=== PATIENT | female | born 1960 | race Caucasian/White ===

== ENCOUNTER 2023-03-30 10:28 | Emergency (ER) | payer OTHER, SELFPAY ==
[2023-03-30 10:31] VITALS: BP 137/88
--- NOTE | 2023-03-30 11:54 | ED.GENMED ---
History of Present Illness
General
Chief Complaint: Back Pain
Source: patient
Exam Limitations: none
Time Seen by Provider: 03/30/23 11:08
Nursing documentation reviewed up to this point in time: agreed with
Travel History
Have you had any contact with someone who has COVID-19?: No
Do you have any symptoms of coronavirus? Fever > 100 degrees, chills, cough, shortness of breath, sore throat, loss of taste or smell, muscle aches, or headache?: No
History of Present Illness
History of Present Illness:
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
3 to 4 days ago after helping her sister clean up the house. Patient says she is not really sure if she overdid it. She developed this pain and then felt the lump present. The skin over that lump looks normal according to the sister. She has not
had any fever or chills, radiation of pain down her leg, wrapping of pain around her abdomen. Patient says she also has chronic shoulder pain from a previous shoulder surgery. Her shoulder was also slightly sore. She is right-handed. She did not
try anything for pain. She says she prefers tramadol and does not prefer muscle relaxers. Patient denies any weakness in her legs, numbness in her legs, incontinence, fever or chills, ongoing IV drug abuse
Past History
Past History
ED Past Medical History: Psychiatric (Bipolar, depression, PTSD, schizophrenia)
ED Past Surgical History: Gynecological (tubal ligation) and Orthopedic
Social History
Tobacco: Smoker
Alcohol: None
Personal: Single
Living: with family
Review of Systems
Review of Systems
Allergies reviewed?: Yes
All Other Systems: Not applicable
Phy Exam
Physical Exam
Physical Exam:
GENERAL: Alert , in no apparent distress, comfortable at rest
HEAD: NCAT
CARDIAC: Regular rate and rhythm, no edema
LUNGS: Clear breath sounds bilaterally, no acute respiratory distress, no wheezes/rales/rhonchi
ABDOMEN: Soft, without focal tenderness, no r/g, no cvat, normal bowel sounds, nondistended
NEUROLOGICAL: Alert and oriented, no focal neuro deficits, CN intact, 5/5 strength, sensation intact, ambulating normaloy
SKIN: Warm and dry, no rash, no bruising, nor edness;
Back: No midline tenderness, pt has lordosis of lumbar spine that is prominent
she has tendneres sand a lump just lateral to the midline, deep to the tissue without any overlying skin chnages
pt has no sign of erythnea
this does not feel like a lipoma
feels tight and tender as a muscle spasm wound
neg straight leg raise
flexion causes pain past 30 degrees
PSYCH: Normal and appropriate interaction.
Course
Orders/Labs/Results
Orders:
Orders
03/30/23 11:48
Ketorolac [Toradol] 30 mg IM NOW STA
Lidocaine [Lidocaine 4% Patch] 1 patch TOPICAL NOW STA
Vital Signs
Initial and Last Documented VS:
Initial Vital Signs
Temp Pulse Resp BP Pulse Ox
98.5 F 92 18 137/88 96
03/30/23 10:31 03/30/23 10:03/30/23 10:03/30/23 10:31 03/30/23 10:31
Last Documented Vital Signs
Temp Pulse Resp BP Pulse Ox
98.5 F 92 18 137/88 96
03/30/23 10:31 03/30/23 10:31 03/30/23 10:31 03/30/23 10:31 03/30/23 10:31
MDM/Problems Addressed
Differential Diagnosis Includes:
lipoma, muscle spasm, mass
MDM/Problems Addressed:
62-year-old female with a history of degenerative disc disease, psychiatric illness presents for nontraumatic right-sided lower back pain with a lump just to the left lateral of her spine after doing some cleaning a few days ago. Patient says the
pain is worse with twisting and bending. She is not having any radicular symptoms, numbness tingling or weakness, chest pain or shortness of breath, skin changes. On exam the patient has palpable tightness in the right paraspinal region on the
upper lumbar area which seems to be a muscle spasm. Evaluated with ED attending who performed bedside ultrasound which did not show any obvious fluid-filled collection. We suspect that this is a muscle spasm. Patient does not like the way the
muscle relaxants make her feel so we will do topical lidocaine patch and pain medication. She has some intolerance to NSAIDs but can take Toradol. She was given a dose here before leaving. [place] that imaging was low yield given no history of
trauma and this feeling very consistent with muscle spasm lateral to the midline
*Critical Care Note
Total Time (30-74mins, 75-104mins- exclusive of procedures): Not Applicable
ED Attending Note
-
Portions of this chart may have been created with voice recognition software.� Occasional wrong word or��sound alike� substitutions may have occurred due to the inherent limitations of voice recognition software.
Discharge Plan
Departure
Patient Disposition: Home (Routine Discharge)
Date of Disposition: 03/30/23
Time of Disposition: 12:06
Patient with high blood pressure during this ER visit?: No
Condition: Fair
Covid-19: Not Applicable
Discharge Problem:
Back muscle spasm
Instructions: Muscle Spasms (DC)
Prescriptions:
New
lidocaine 5 % adhesive patch,medicated
1 patch topical DAILY PRN (Reason: BACK PAIN) Qty: 15 0RF
Rx Instructions:
LEAVE ON FOR 12 HOURS, REMOVE FOR 12 HOURS
No Action
gabapentin 300 mg Tablet
300 mg PO TID
pramipexole 0.5 mg Tablet
0.5 mg PO BID
trazodone 100 mg Tablet
100 mg PO HS
Vraylar 3 mg Capsule
3 mg PO HS
levofloxacin 250 mg tablet
250 mg PO DAILY Qty: 3 0RF
nitrofurantoin monohyd/m-cryst [Macrobid] 100 mg capsule
100 mg PO Q12H 5 Days Qty: 10 0RF
Referrals:
PRIVATE,PHYSICIAN [Family Provider] -
Activity Restrictions/Additional Instructions:
YOUR BACK PAIN SEEMS TO BE FROM A SPASM
TRY LIDOCAINE PATCH 12 HOURS ON 12 HOURS OFF FOR YOUR BACK PAIN
WHNE THE PATCH IS OFF, YOU CAN APPLY HEAT TO YOUR BACK
TAKE TYLENOL 3 TIMES A DAY FOR PAIN NEEDED
RETURN FOR WORSE PAIN, SKIN CHANGES, FEVER, WEAKNESS IN LEGS, TROUBL EBREATHING OR ANY CONCENRS.
Interventions
Interventions:
*Risk Screen - Suicide Last Done: 03/30/23 10:35
*General Assessment Last Done: 03/30/23 10:35
*Neglect/Abuse Screening Last Done: 03/30/23 10:35
*Nursing Disposition Last Done: 03/30/23 12:35
Discharge Date and Time
Discharge Date/Time: 03/30/23 12:35
[2023-03-30] MEDS: TORADOL 30 MG IM (12:11)
[2023-03-30] MEDS: LIDOCAINE 4% PATCH 1 PATCH TOPICAL (12:11)
== END 2023-03-30 12:35 | disposition home or self-care (01) ==
LOC: EMR 10:28
PROVIDERS: EMERGENCY PHYSICIAN Emergency Medicine
DX: M62.830 Muscle spasm of back (principal); M54.50 Low back pain, unspecified; M51.9 Unspecified thoracic, thoracolumbar and lumbosacral intervertebral disc disorder
CPT/HCPCS: 99284; 96372

== ENCOUNTER 2024-03-11 10:17 | Emergency (ER) | payer SELFPAY ==
[2024-03-11 10:24] VITALS: BP 122/74
[2024-03-11 10:42] LABS: % Eosinophils 1.3 % (0-6); % Immature Granulocytes 0.3 % (0-0.5); % Lymphocytes 28.2 % (20.5-51.1); % Neutrophils 61.2 % (42.2-75.2); Absolute Basophils 0.1 10^3/uL (0-0.2); Absolute Eosinophils 0.1 10^3/uL (0-0.7); Absolute Lymphocytes 2.2 10^3/uL (1.2-3.4); Absolute Monocytes 0.6 10^3/uL (0.1-0.6); Absolute Neutrophils 4.7 10^3/uL (1.4-6.5); Hematocrit 46.9 % (37.0-47.0); Hemoglobin 15.4 g/dL (12.0-16.0); Mean Corp Hgb Conc. 32.8 g/dL (33.0-37.0); Mean Corpuscular Hgb 31.6 pg (27.0-31.0); Mean Corpuscular Volume 96.3 fL (81.0-99.0); Mean Platelet Volume 8.4 fL (7.4-10.4); Nucleated Red Blood Cells % 0 %; Platelet Count 343 10^3/uL (130-400); Red Blood Cell Count 4.87 10^6/uL (4.20-5.40); White Blood Cell Count 7.7 10^3/uL (4.8-10.8)
[2024-03-11 10:54] LABS: ALT (SGPT) 14 U/L (0-35); AST (SGOT) 22 U/L (14-36); Albumin 4.3 g/dl (3.5-5.0); Alkaline Phosphatase 47 U/L (38-126); Blood Urea Nitrogen 14 mg/dl (7-17); Calcium 9.4 mg/dl (8.4-10.2); Carbon Dioxide 31 mmol/L (22-30); Chloride 102 mmol/L (98-107); Glucose 102 mg/dl (70-99); Lipase 215 U/L (23-300); Potassium 4.9 mmol/L (3.5-5.1); Sodium 141 mmol/L (135-145); Total Bilirubin 0.5 mg/dl (0.2-1.3); eGFR > 60.00
[2024-03-11 12:13] VITALS: BP 120/70
[2024-03-11 12:15] VITALS: BMI 25.0
--- NOTE | 2024-03-11 12:33 | ED.GENMED ---
History of Present Illness
General
Chief Complaint: Abdominal Pain
Source: patient and family
Exam Limitations: none
Time Seen by Provider: 03/11/24 11:23
Nursing documentation reviewed up to this point in time: agreed with
History of Present Illness
History of Present Illness:
63-year-old female with past medical history of 'liver issues' presenting to the emergency department today with concerns of worsening right upper quadrant abdominal pain over the sick past 6 months but some degree of discomfort over the past 40
years. Denies nausea vomiting diarrhea. She has had noticeable worsening over the past 6 months and also some distention.
Past History
Past History
ED Past Medical History: Psychiatric (Bipolar, depression, PTSD, schizophrenia)
ED Past Surgical History: Gynecological (tubal ligation) and Orthopedic
Social History
Tobacco: Smoker
Alcohol: None
Personal: Single
Living: with family
Review of Systems
Review of Systems
Allergies reviewed?: Yes
All Other Systems: ROS reviewed and negative except as documented in HPI and ROS
Phy Exam
Physical Exam
Physical Exam:
GENERAL: Alert , in no apparent distress
EYE: pupils equal and reactive
NECK: Supple, no significant adenopathy.
ENT: o/p clr, mmm.
CARDIAC: Regular rate and rhythm .
LUNGS: Clear breath sounds bilaterally, no acute respiratory distress, no wheezes/rales/rhonchi
ABDOMEN: distended abdomen vague tenderness throughout
NEUROLOGICAL: Alert and oriented, no focal neuro deficits
SKIN: Warm and dry, skin intact.
MUSCULOSKELETAL: No edema, well perfused.
PSYCH: Normal and appropriate interaction.
Course
Orders/Labs/Results
Orders:
Orders
03/11/24 10:34
Complete Blood Count/With Diff Urgent
Comprehensive Metabolic Panel Urgent
Lipase Urgent
03/11/24 12:00
CT Abd/Pel (IV only)-DH only Urgent
Comment:
Reason For Exam: diffuse distension, upper abd pain
03/11/24 14:56
Urinalysis Reflex To Culture Urgent
Date Specimen was Collected: 03/11/24
Time Specimen was Collected: 14:43
Urine Microscopic Reflex Cult Urgent
Abnormal Lab Results
03/11/24 03/11/24
10:34 14:56
MCH 31.6 H pg
(27.0-31.0)
MCHC 32.8 L g/dL
(33.0-37.0)
Carbon Dioxide 31 H mmol/L
(22-30)
Glucose 102 H mg/dl
(70-99)
Ur Occult Blood Reflex Trace A
(Negative)
Urine RBC 3-6 A /HPF
(0-2)
Urine Bacteria (Reflex) Few A
(Negative)
03/11/24 10:34
03/11/24 10:34
Vital Signs
Initial and Last Documented VS:
Initial Vital Signs
Temp Pulse Resp BP Pulse Ox
97.5 F 91 16 122/74 95
03/11/24 10:24 03/11/24 10:24 03/11/24 10:24 03/11/24 10:24 03/11/24 10:24
Last Documented Vital Signs
Temp Pulse Resp BP Pulse Ox
97.5 F 91 16 120/70 96
03/11/24 10:24 03/11/24 10:24 03/11/24 10:24 03/11/24 12:13 03/11/24 12:14
MDM/Problems Addressed
MDM/Problems Addressed:
61-year-old female presenting to the emergency department today with concerns of abdominal distention and intermittent right upper quadrant abdominal pain over the past few decades but worsening over the past 6 months. Here vital signs are normal
labs unremarkable CT scan without emergent findings but showed evidence of potential hernias that could be contributing to symptoms. Advised for close GI follow-up. Return precautions given.
*Critical Care Note
Total Time (30-74mins, 75-104mins- exclusive of procedures): Not Applicable
ED Attending Note
-
Portions of this chart may have been created with voice recognition software.� Occasional wrong word or��sound alike� substitutions may have occurred due to the inherent limitations of voice recognition software.
Discharge Plan
Departure
Patient Disposition: Home (Routine Discharge)
Date of Disposition: 03/11/24
Time of Disposition: 15:26
Patient with high blood pressure during this ER visit?: No
Condition: Good
Covid-19: Not Applicable
Discharge Problem:
Abdominal pain
Instructions: Abdominal Pain
Prescriptions:
No Action
gabapentin 300 mg Tablet
300 mg PO TID
pramipexole 0.5 mg Tablet
0.5 mg PO BID
trazodone 100 mg Tablet
100 mg PO HS
Vraylar 3 mg Capsule
3 mg PO HS
levofloxacin 250 mg tablet
250 mg PO DAILY Qty: 3 0RF
nitrofurantoin monohyd/m-cryst [Macrobid] 100 mg capsule
100 mg PO Q12H 5 Days Qty: 10 0RF
lidocaine 5 % adhesive patch,medicated
1 patch topical DAILY PRN (Reason: BACK PAIN) Qty: 15 0RF
Rx Instructions:
LEAVE ON FOR 12 HOURS, REMOVE FOR 12 HOURS
Referrals:
David Chávez MD [Active] - Follow up in 5-7 days
NONE,* [Family Provider] -
Activity Restrictions/Additional Instructions:
You came to the emergency department today with concerns of abdominal pain. Please feel closely with GI. Return for any worsening, new or concerning symptoms. You can also start Prilosec once daily for the next few weeks.
Interventions
Interventions:
*Risk Screen - Suicide Last Done: 03/11/24 12:17
*General Assessment Last Done: 03/11/24 12:17
*Neglect/Abuse Screening Last Done: 03/11/24 12:17
*ED COVID-19 Vaccine History Last Done: 03/11/24 12:17
EB-Tcjoin-Ipjrhjoljz Assessment Last Done: 03/11/24 12:21
Discharge Date and Time
Print Language: BULGARIAN
[2024-03-11 15:11] LABS: Urine Albumin Negative (Neg - Trace); Urine Bilirubin Negative (Negative); Urine Character Clear (Clear); Urine Color Yellow; Urine Glucose Negative (Negative); Urine Ketone Negative (Negative); Urine Leukocyte Negative (Negative); Urine Nitrite Negative (Negative); Urine Occult Blood Trace (Negative); Urine Urobilinogen Negative (Neg - 1+); Urine pH 6.5 (5.0-9.0)
[2024-03-11 15:19] LABS: Urine Bacteria Few (Negative); Urine Squamous Cell 0-2 /LPF (Few); Urine White Cell 0-2 /HPF (0-5)
== END 2024-03-11 16:40 | disposition home or self-care (01) ==
LOC: EMR 10:17
PROVIDERS: Physician Assistant; EMERGENCY PHYSICIAN Student in an Organized Health Care Education/Training Program
DX: R10.11 Right upper quadrant pain (principal); F17.200 Nicotine dependence, unspecified, uncomplicated; Z98.51 Tubal ligation status
CPT/HCPCS: 99284; 74177; 80053; 81003; 81015; 83690; 85025; Q9967